=== PATIENT | female | born 1955 | race Caucasian/White ===

== ENCOUNTER 2019-01-01 21:02 | Emergency (ER) | payer OTHER ==
[~2019-01-01] VITALS: Ht 165.1 cm; Wt 72.6 kg
[2019-01-01 21:19] VITALS: BP_SYST 127
[2019-01-01 22:58] VITALS: BP_SYST 127
== END 2019-01-01 22:58 | disposition home or self-care (01) ==
LOC: SED 21:02
DX: J20.8 Acute bronchitis due to other specified organisms (principal); B97.89 Other viral agents as the cause of diseases classified elsewhere; Z88.8 Allergy status to other drugs, medicaments and biological substances
CPT/HCPCS: 71045; 99283